=== PATIENT | male | born 1965 | race Caucasian/White ===

== ENCOUNTER 2018-05-02 14:53 | Emergency (ER) | payer MEDICAID ==
[~2018-05-02] VITALS: Ht 180.3 cm; Wt 145.1 kg
[2018-05-02] MEDS ORDERED: EPINEPHrine HCL 1 MG/10 ML SYRG IV ONE (14:54)
[2018-05-02] MEDS ORDERED: SODIUM BICARBONATE 8.4% INJ 50ML SYRINGE IV ONE (14:54)
[2018-05-02] MEDS ORDERED: CALCIUM CHLOR(10%) 100MG/ML 10ML SYRINGE IV ONE (14:54)
[2018-05-02] MEDS ORDERED: SODIUM BICARBONATE 8.4% INJ 50ML SYRINGE ONE (14:58)
[2018-05-02] MEDS ORDERED: EPINEPHrine HCL 1 MG/10 ML SYRG ONE (14:58)
== END 2018-05-02 17:48 | disposition expired ==
LOC: EDBD 14:53 → ER 14:53
DX: I46.9 Cardiac arrest, cause unspecified (principal); I48.91 Unspecified atrial fibrillation; I25.10 Atherosclerotic heart disease of native coronary artery without angina pectoris; E11.22 Type 2 diabetes mellitus with diabetic chronic kidney disease; I13.2 Hypertensive heart and chronic kidney disease with heart failure and with stage 5 chronic kidney disease, or end stage renal disease; I50.9 Heart failure, unspecified; N18.6 End stage renal disease; Z98.61 Coronary angioplasty status
CPT/HCPCS: 31500; 92950; 99285; J0171